=== PATIENT | male | born 1965 | race Caucasian/White ===

== ENCOUNTER 2018-03-23 06:21 | Day surgery (SDC) | payer BC ==
[2018-03-22 13:54] VITALS: BMI 26.1
[2018-03-23] MEDS ORDERED: Midazolam 2 MG/2 ML VIAL ONE (08:18)
[2018-03-23] MEDS ORDERED: Lactated Ringer's 500 ML IV ONE (08:18)
[2018-03-23] MEDS ORDERED: Propofol 10 mg/ml Inj (20 ML) ONE (08:18)
[2018-03-23 09:03] VITALS: TEMP 96.8
[2018-03-23 09:57] VITALS: BP 115/83; PULSE 65; RESP 18; O2SAT 99
== END 2018-03-23 09:56 | disposition home or self-care (01) ==
LOC: C.ENDO 06:21
PROVIDERS: ATTEND Internal Medicine Gastroenterology
DX: Z12.11 Encounter for screening for malignant neoplasm of colon (principal); D12.2 Benign neoplasm of ascending colon; D12.3 Benign neoplasm of transverse colon
CPT/HCPCS: 45380; 45385; 88305; J2001; J2250; J2704; J7120